=== PATIENT | male | born 1995 | race Caucasian/White ===

== ENCOUNTER 2022-02-10 21:31 | Emergency (ER) | payer OTHER ==
[2022-02-10 21:45] VITALS: BP 140/69
--- NOTE | 2022-02-10 22:28 | XRAY Report ---
PROCEDURE: Chest 1 View X-Ray INDICATIONS: SOA TECHNIQUE: One view of the chest was acquired. COMPARISON: None. FINDINGS: Surgical changes and devices: None. Lungs and pleura: No pleural effusions or pneumothorax. Lungs are clear. Mediastinum: Mediastinal contours appear normal. Heart size is normal. Bones and chest wall: No suspicious bony lesions. Overlying soft tissues appear unremarkable. IMPRESSION: 1. No acute cardiopulmonary disease. Reviewed by: Ramin San MD on 02/10/2022 10:27 PM PDT Approved by: Ramin San MD on 02/10/2022 10:27 PM PDT Station ID: [id number]
--- NOTE | 2022-02-10 22:37 | ED Physician Documentation ---
PD HPI DYSPNEA - Stated complaint Stated Complaint: SOA,SEASONAL ALLERGIES - Chief complaint Chief Complaint: Resp - History obtained from History obtained from: Patient - Additional information Additional information: Patient is a 26-year-old male with no significant past medical history presenting for evaluation of shortness of breath that occurred earlier this evening around 530. Patient had been outside mowing the lawn today. When he came inside he felt short of breath Which lasted 30 to 60 minutes. He did feel better while he was inside. When he went back outside briefly he started to fe el similar symptoms again. He recently moved to [facility] from [place] [address] ago[address] He did drive but reports making frequent stops and denies any leg pain or swelling. He currently states his breathing feels back to normal. He does have a history of seasonal allergies with runny nose and watery eyes and has been using Zyrtec for the last 2 days. He has never had breathing issues associated with his allergies. He denies a history of asthma.He denies a history of a PE or DVT.No recent surgery or trauma. Review of Systems Constitutional: denies: Fever Nose: denies: Congestion Throat: denies: Sore throat Cardiac: denies: Chest pain / pressure Respiratory: reports: Dyspnea (Resolved), Cough (Nonproductive) GI: denies: Abdominal Pain, Vomiting Skin: denies: Rash Musculoskeletal: denies: Extremity pain, Extremity swelling Neurologic: denies: Headache PD PAST MEDICAL HISTORY - Past Medical History Past Medical History: No - Past Surgical History Past Surgical History: No - Allergies Allergies/Adverse Reactions: Allergies Allergy/AdvReac Type Severity Reaction Status Date / Time No Known Drug Allergies Allergy Verified 02/10/22 21:40 - Social History Does the pt smoke?: No Smoking Status: Never smoker Does the pt drink ETOH?: No Does the pt have substance abuse?: No - Immunizations Immunizations are current?: Yes PD ED PE NORMAL - General General: Alert and oriented X 3, No acute distress, Well developed/nourished - HEENT HEENT: Atraumatic, Moist mucous membranes - Neck Neck: Supple, no meningeal sign - Cardiac Cardiac: RRR (HR 50s), No murmur, Strong equal pulses - Respiratory Respiratory: No respiratory distress, Clear bilaterally - Derm Derm: Warm and dry - Extremities Extremities: No edema, No calf tenderness / cord - Neuro Neuro: Normal speech - Psych Psych: Normal mood Results - Vitals Vitals: Vital Signs - 24 hr 02/10/22 21:37 Temperature 36.5 C Heart Rate 53 L Respiratory 17 Rate Blood Pressure 140/69 H O2 Saturation 98 Oxygen O2 Source Room air - EKG (time done) 2242 Rate: Rate (enter#) (55) Rhythm: Sinus bradycardia [place]: Normal Ischemia: No: ST elevation c/w ischemia Compare to prior EKG: Old EKG unavailable PD MEDICAL DECISION MAKING - ED course Complexity details: reviewed results, re-evaluated patient, d/w patient, d/w family ED course: Patient is a 26-year-old male presenting for evaluation of shortness of breath that occurred earlier this evening. On arrival he is asymptomatic. His vital signs are stable. Chest x-ray is clear. An EKG shows a normal sinus rhythm with no arrhythmia or signs of ischemia. Patient is PERC negative. His lung sounds are clear. Symptoms could be related to seasonal allergies as he is new to the area and does have a history of allergies and was mowing the lawn just prior to symptom onset. Patient was counseled on continuing with Zyrtec and to follow-up with his PCM. He is aware of strict return precautions. Departure - Departure Disposition: 01 Home, Self Care Clinical Impression: Shortness of breath Condition: Stable Instructions: ED Dyspnea Shortness of Breath Comments: You were evaluated for shortness of breath that occurred earlier today. Fortunately it seems to have improved at the time of your emergency department evaluation. Your vital signs here are stable. A chest x-ray was obtained and does not show any Significant abnormalities. We also checked your heart with an EKG and this also shows a normal rhythm. Your symptoms could be related to seasonal allergies. I would continue with taking Zyrtec daily. It may take a few weeks for the Zyrtec to be in your system to help prevent any symptoms associated with seasonal allergies but in the meanwhile it will help with any symptoms you are already experiencing. Please also follow-up with your PCM through the [facility].If you have any worsening symptoms such as leg swelling or pain, chest pain, recurrence of the trouble breathing please consider returning to the emergency department.
== END 2022-02-10 23:47 | disposition home or self-care (01) ==
LOC: ED 21:31
DX: R06.09 Other forms of dyspnea (principal)
CPT/HCPCS: 93005; 99283; 99284